=== PATIENT | male | born 1970 | race Caucasian/White ===

== ENCOUNTER 2016-12-10 03:02 | Emergency (ER) | payer OTHER ==
[~2016-12-10] VITALS: Ht 167.6 cm; Wt 166.9 kg
[~2016-12-10 03:02] MED LIST: ADVIL200 MG PO; ATARAX,VISTARIL50 MG PO; AUGMENTIN875 MG PO; BENADRYL50 MG PO; EFFEXOR XR150 MG PO; KEFLEX500 MG PO; METFORMIN HCL500 MG PO; PEPCID20 MG PO; PREDNISONE50 MG PO; VENLAFAXINE225 MG PO; [UNRECOGNIZED DRUG - REMARK]; [UNRECOGNIZED DRUG - REMARK]
[2016-12-10 03:03] VITALS: BP 152/92
[2016-12-10] MEDS ORDERED: NORCO 5/3251 TABLET PO (03:40)
[2016-12-10] MEDS ORDERED: PEN-VEE K,VEET500 MG PO (03:40)
== END 2016-12-10 03:52 | disposition home or self-care (01) ==
LOC: EME 03:02
DX: K05.30 Chronic periodontitis, unspecified (principal)
CPT/HCPCS: 99281; 99283

== ENCOUNTER 2017-01-20 05:04 | Emergency (ER) | payer OTHER ==
[~2017-01-20] VITALS: Ht 170.2 cm; Wt 172.4 kg
[~2017-01-20 05:04] MED LIST changes: +NORCO 5/3251 TABLET PO; +PEN-VEE K,VEET500 MG PO
[2017-01-20 06:28] VITALS: BP 111/70
== END 2017-01-20 06:30 | disposition home or self-care (01) ==
LOC: EME 05:04
DX: K42.9 Umbilical hernia without obstruction or gangrene (principal); F17.200 Nicotine dependence, unspecified, uncomplicated
CPT/HCPCS: 99281; 99283

== ENCOUNTER 2017-02-20 07:11 | Emergency (ER) | payer OTHER ==
[~2017-02-20] VITALS: Ht 170.2 cm; Wt 174.0 kg
[2017-02-20] MEDS ORDERED: POLYTRIM EYE DR10 ML LEFT EYE (09:12)
[2017-02-20 09:43] VITALS: BP 145/91
== END 2017-02-20 09:43 | disposition home or self-care (01) ==
LOC: EME 07:11
DX: H00.015 Hordeolum externum left lower eyelid (principal); H04.19 Other specified disorders of lacrimal gland
CPT/HCPCS: 99281; 99283